=== PATIENT | male | born 1965 ===

== ENCOUNTER 2023-10-22 12:15 | Emergency (ER) | payer BC ==
[2023-10-22] MEDS ORDERED: cloNIDine 0.1 MG TAB ONE (13:41)
[2023-10-22] MEDS ORDERED: Amlodipine 5 MG TAB ONE (14:57)
== END 2023-10-22 14:53 | disposition home or self-care (01) ==
LOC: ERS 12:15
DX: R10.9 Unspecified abdominal pain (principal); Z55.6 Problems related to health literacy; Z79.899 Other long term (current) drug therapy
CPT/HCPCS: 99282